=== PATIENT | male | born 1945 | race Caucasian/White ===

== ENCOUNTER 2024-03-30 10:21 | Outpatient (REF) | payer MEDICARE, SELFPAY ==
[2024-03-30 12:03] LABS: Erythrocyte Sedimentation Rate 5 MM/HR (0-15)
[2024-03-30 12:07] LABS: Syphilis Screen Nonreactive (Nonreactive)
[2024-03-30 12:21] LABS: Folate 7.1 ng/mL (> or = 4.0); Vitamin B12 1296 pg/mL (200-900)
[2024-03-31 22:24] LABS: Lyme Abs Screen <0.90 index
[2024-04-05 14:13] LABS: IgA 139 mg/dL (70-320); IgG 1038 mg/dL (600-1540); IgM 66 mg/dL (50-300)
== END 2024-03-30 10:22 | disposition home or self-care (01) ==
LOC: HO.LAB 10:21
PROVIDERS: PCP Internal Medicine; Visit Provider Psychiatry & Neurology Neurology
DX: R27.0 Ataxia, unspecified (principal)
CPT/HCPCS: 82607; 82746; 82784; 85652; 86334; 86617; 86618; 86780

== ENCOUNTER 2024-04-06 07:24 | Outpatient (REF) | payer MEDICARE, SELFPAY ==
--- NOTE | ~2024-04-06 | MR_ITS ---
EXAMINATION: MR CERVICAL SPINE WITHOUT CONTRAST CLINICAL INFORMATION: Ataxia COMPARISON: None available. TECHNIQUE: MRI of the cervical spine was obtained using routine sequences without contrast. FINDINGS: Mild straightening of cervical lordosis. There is grade 1 retrolisthesis C4 over C5 and C5 over C6. There is loss of C3-C4, C4-5, C5-6 and C6-C7 disc heights. Rest of the disc heights are normal. The cervical-medullary junction and C1-C2 alignment is normal. At C2-3 disc level there is mild right uncovertebral hypertrophic change resulting in minimal right neural from narrowing. The left neural foramina is patent. The spinal canal is capacious. At C3-4 disc level posterior spondylosis/bulge complex resulting in thinning of the ventral thecal sac and cord with minimal AP canal narrowing. There is moderate bilateral neural foraminal narrowing. At C4-5 disc level there is posterior spondylosis/bulge complex resulting in flattening of ventral thecal sac an cord with mild AP canal narrowing. There is bilateral moderate narrowing of neural foramina from underlying facet joint and uncovertebral hypertrophic changes. At C5-6 disc level there is a disc bulge/ossified complex flattening the ventral thecal sac and cord. There is moderate bilateral narrowing of neural foramina. At C6/7 disc level there is diffuse disc bulge/osteophyte complex effacing the ventral thecal sac but without spinal canal stenosis. Bulge/disc complexes slightly eccentric to the left para midline region. Neural foramina are narrowed bilaterally. At C7-T1 disc level there is mild disc bulge without spinal canal stenosis the neural foramina are patent bilaterally. There are mild endplate changes at the C5-6 disc level. Mild ventral spondylosis seen from C3-4 through C6 testis 7 disc levels. There is focal T2 cord signal posterior to C3 vertebra suggestive of myelomalacia the paravertebral soft tissues are normal. MR/MR cervical spine wo con IMPRESSION: This bulge/osteophyte complex resulting in mild AP canal stenosis and flattening of the ventral cord at C3-4 through C5-6 disc level. Diffuse disc bulge/osteophyte complex at C6-C7 disc level. In addition there a complex slightly eccentric to the left side. Electronically signed by: Suraj Davis MD 04/06/2024 10:21 AM [facility]
== END 2024-04-06 07:25 | disposition home or self-care (01) ==
LOC: HO.MRI 07:24
PROVIDERS: PCP Internal Medicine; Visit Provider Psychiatry & Neurology Neurology
DX: R27.0 Ataxia, unspecified (principal)
CPT/HCPCS: 72141; 86335

== ENCOUNTER → 2024-04-06 07:30 | Outpatient (BNV) | payer MEDICARE, SELFPAY | PROVIDERS: PCP Internal Medicine; Visit Provider Radiology Diagnostic Radiology | DX: M50.223 Other cervical disc displacement at C6-C7 level (principal) | CPT/HCPCS: 72141 ==

== ENCOUNTER 2024-10-25 13:40 | Outpatient (AMB) | payer MEDICARE, SELFPAY ==
--- OUTSIDE RECORDS SUMMARY | 2024-10-20 23:59 | XMS_ITS | Continuity of Care Document ---
Author Organization [facility] Address [address] [place] [id number]- Care Team Providers Care Tomato Pulper Operator Name Role Phone Radu BRADLEY, Saturnino Hernández Primary Care Physician Encounter [facility] Date(s): 09/20/24 - 10/20/24 [facility] [address] [place] [id number] Encounter Type: Triage Allergies, Adverse Reactions, Alerts No Known Allergies Immunizations Given and Recorded Vaccine Date Status Refusal Reason SARS-CoV-2(COVID-19)mRNA-LNP vac([id number]) 02/26/24 Recorded SARS-CoV-2(COVID-19)mRNA-LNP vac([id number]) 12/04/22 Recorded influenza virus vaccine, inactivated 01/31/24 Give n influenza virus vaccine, inactivated 12/04/22 Daniel rded influenza virus vaccine, inactivated 12/09/21 Daniel rded influenza virus vaccine, inactivated 11/13/20 Daniel rded influenza virus vaccine, inactivated 01/05/20 Daniel rded influenza virus vaccine, inactivated 11/29/18 Daniel rded influenza virus vaccine, inactivated 12/28/17 Daniel rded influenza virus vaccine, inactivated 12/31/16 Daniel rded influenza virus vaccine, inactivated 12/12/14 Daniel rded influenza virus vaccine, inactivated 12/04/13 Daniel rded influenza virus vaccine, inactivated 01/05/13 Daniel rded influenza virus vaccine, inactivated 12/14/11 Daniel rded influenza virus vaccine, inactivated 01/16/11 Daniel rded influenza virus vaccine, inactivated 12/29/08 Daniel rded influenza virus vaccine, inactivated 02/17/08 Daniel rded RSV vaccine preF3, recombinant 12/31/22 Recorded hepatitis B adult vaccine 03/03/22 Recorded hepatitis B adult vaccine 09/23/21 Recorded hepatitis B adult vaccine 08/21/21 Recorded [id number] bivalent booster vax 01/14/22 Recorded tetanus/diphtheria/pertussis, acel(Tdap) 12/09/21 Given tetanus/diphtheria/pertussis, acel(Tdap) 10/06/21 Recorded tetanus/diphtheria/pertussis, acel(Tdap) 08/14/12 Recorded tetanus/diphtheria/pertussis, acel(Tdap) 08/19/10 Given tetanus/diphtheria/pertussis, acel(Tdap) 02/17/08 Recorded pneumococcal 20-valent conjugate vaccine 10/09/21 Given SARS-CoV-2 mRNA ([id number]) vax 07/31/21 Recorded zoster vaccine, inactivated 06/11/21 Recorded zoster vaccine, inactivated 12/05/20 Recorded SARS-CoV-2 (COVID-19) mRNA-1273 vaccine 02/01/21 R ecorded SARS-CoV-2 (COVID-19) mRNA-1273 vaccine 06/13/20 R ecorded SARS-CoV-2 (COVID-19) mRNA-1273 vaccine 05/16/20 R ecorded pneumococcal 13-valent vaccine 06/06/14 Recorded pneumococcal 23-valent vaccine 01/05/13 Recorded Zoster Vaccine Live 05/07/09 Recorded Medications amLODIPine 5 mg oral tablet See Instructions, TAKE 1 TABLET BY MOUTH EVERY DAY NEW DOSE, # 90 tablet, 1 Refills, Maintenance, 07/31/24 12:55:00 PM EDT, [id number], 166.5, cm, 06/29/24 9:27:00 EDT, Height, 75.45, kg, 11/09/23 7:02:00 EDT, Dry Weight Start Date: 07/31/24 Status: Ordered Quantity: 90.0 Unit: tablet Repeat number: 1 atorvastatin 80 mg oral tablet 1 tablet = 80 mg, By Mouth, Daily, # 90 tablet, 1 Refills, Maintenance, 08/11/22 4:25:00 PM EDT, Tablet, [facility], Partial fill upon patient request if the prescription is for a scheduleII opioid drug., 175, cm, 07/22/22 11:37:00 EDT, Height, 78, kg, 12/09/21 10:03:00 EDT, Dry Weight Start Date: 08/11/22 Status: Ordered Quantity: 90.0 Unit: tablet Repeat number: 2 D3 By Mouth, Daily, 0 Refills, Maintenance, 08/19/23 10:23:00 AM EDT, Partial fill upon patient request if the prescription is for a schedule II opioid drug. Start Date: 08/19/23 Status: Ordered Repeat number: 1 Dulcolax Stool Softener See Instructions, 100 mg By Mouth 2 times a day, 0 Refills, Maintenance, 01/14/24 2:03:00 PM EDT, Partial fill upon patient request if the prescription is for a schedule II opioid drug. Start Date: 01/14/24 Status: Ordered Repeat number: 1 Glucagon Emergency Kit for Low Blood Sugar 1 mg injection = 1 mg, Intramuscular, Once, Use as instructed for treatment of severre low blood sugars. If used call 911. E10.649, # 1 each, 1 Refills, Soft Stop, 06/13/24 12:51:00 PM EDT, [facility]/pharmacy #[id number], Partial fill upon patient request if the prescription is for a schedule II opioid drug., 166.5, cm, 05/11/24 8:12:00 EST, Height, 75.45, kg, 11/09/23 7:02:00 EDT, Dry Weight Start Date: 06/13/24 Status: Ordered Quantity: 1.0 Unit: each Repeat number: 2 Humalog 100 u/ml subcutaneous injection See Instructions, INJECT DIRECTED. MAX DAILY DOSE 60 UNITS, # 60 mL, 3 Refills, Maintenance, 09/27/24 4:50:00 PM EDT, [facility], 166.5, cm, 09/08/24 10:02:00 EDT, Height, 75.45, kg, 11/09/23 7:02:00 EDT, Dry Weight Start Date: 09/27/24 Status: Ordered Quantity: 60.0 Unit: mL Repeat number: 4 Insulin Syringe, BD Ultra-Fine 0.3 cc 31 G x 8 mm (5/16in) See Instructions, # 100 each, Refills 3, Tot. Refills 3, Maintenance, use for insulin administration up to 3 times per day,, dispense syringe with 1/2 unit olivier, 10/06/24 9:45:00 AM EDT, dx e10.9, Supply, 166.5, cm, 09/08/24 10:02:00 EDT, Height, 75.45, kg, 11/09/23 7:02:00 EDT, Dry Weight Start Date: 10/06/24 Stop Date: 02/03/25 Status: Ordered Quantity: 100.0 Unit: each Repeat number: 4 Lantus Solostar Pen 100 units/mL subcutaneous solution See Instructions, Inject 15 units daily. Use in case of pump failure. Subcutaneous Injection Daily at bedtime. E10.65 Max dose 60 units., # 30 mL, 1 Refills, Maintenance, 08/19/23 11:09:00 AM EDT, Solution, [facility]/pharm[facility] #[id number], Partial fill upon patient request if the prescription is for a schedule IIopioid drug., 167.5, cm, 08/19/23 10:19:00 EDT, Height, 78, kg, 12/09/21 10:03:00 EDT, Dry Weight Start Date: 08/19/23 Status: Ordered Quantity: 30.0 Unit: mL Repeat number: 2 lisinopril 40 mg oral tablet 1 tablet = 40 mg, By Mouth, Daily, # 90 tablet, 3 Refills, Maintenance, 05/03/24 10:58:00 AM EST, [facility]/pharm[facility] #[id number], 168, cm, 05/03/24 10:08:00 EST, Height, 75.45, kg, 11/09/23 7:02:00 EDT, Dry Weight Start Date: 05/03/24 Status: Ordered Quantity: 90.0 Unit: tablet Repeat number: 4 Pen needles, 31G x5mm, Embecta, Ultra fine II Pen needles, 31G x5mm, Embecta, Ultra fine II, See Instructions, # 200 each, Refills 5, Tot. Refills 5, Maintenance, for 4x daily with insulin pens, E10.9, 09/29/24 12:31:00 PM EDT, Supply, 166.5, cm,09/08/24 10:02:00 EDT, Height, 75.45, kg, 11/09/23 7:02:00 EDT, Dry Weight Start Date: 09/29/24 Status: Ordered Quantity: 200.0 Unit: each Repeat number: 6 Tylenol Caplet Extra Strength = 1,000 mg, By Mouth, taking before exercise, 0 Refills, Maintenance, 11/21/14 9:28:23 AM EDT Start Date: 11/21/14 Status: Ordered Repeat number: 1 Vitamin B12 0 Refills, Maintenance, 08/19/23 10:22:00 AM EDT, Partial fill upon patient request if the prescription is for a schedule II opioid drug. Start Date: 08/19/23 Status: Ordered Repeat number: 1 Problem List Condition Confirmation Course Effective Dates Status Health Status Informant Anemia Confirmed Active Cellulitis of left index finger Confirmed Active Chronic kidney disease, stage 3a 1 Confirmed Active Rash Confirmed Active S/P cataract extraction Confirmed Active Hypercholesteremia Confirmed Active HTN (hypertension) Confirmed Active Laceration of index finger Confirmed Active Sessile colonic polyp Confirmed Active T1DM (type 1 diabetes mellitus) Confirmed Active Wound dehiscence Confirmed Active 1Per chart review meets GFR criteria Social History Social History Type Response Smoking Status Never (less than 100 in lifetime) entered on: 12/18/21 Sex Sex Representation Male (finding) Patient Care team information Care Team Personnel Name: Tony Mojgan Position: [facility] Outreach Member Role: Lifetime Consulting Physician Name: Emma Jimenez Position: [facility] Outreach Member Role: Lifetime Consulting Physician Name: Saturnino Lovelace MD Position: [facility] Physician - Primary Care Member Role: PCP Address: [address] [place] [address], [facility] [address] [place], [place] [address] Telecom: Care Team Related Persons Name: MARK MURILLO Name: HERIBERTO VALLEJO Insurance Providers Guarantor name: BERTRAND VALLEJO Health Plan Information #: 1 Payer: [facility] MEDICARE ADV HMO Payer Identifier: NA Member Number: [id number] Group Number: [id number] Subscriber Identifier: [id number] Relationship to Subscriber: self Coverage Type: Medicare HMO Coverage Verification Date: NA Telecom: NA Address: NA
--- OUTSIDE RECORDS SUMMARY | 2024-10-21 23:59 | XMS_ITS | Continuity of Care Document ---
Author Organization [facility] ter Address [address] [place] [address]- Care Team Providers Care Repairer Sash And Door Name Role Phone Radu BRADLEY, Saturnino Hernández Primary Care Physician Encounter [facility] Date(s): 09/21/24 - 10/21/[address] [id number] Attending Physician: Noemi Wagner Admitting Physician: Noemi Wagner Referring Physician: AdmtrNoemi Encounter Type: Triage Allergies, Adverse Reactions, Alerts No Known Allergies Immunizations Given and Recorded Vaccine Date Status Refusal Reason SARS-CoV-2(COVID-19)mRNA-LNP vac([id number]) 02/26/24 Recorded SARS-CoV-2(COVID-19)mRNA-LNP vac([id number]) 12/04/22 Recorded influenza virus vaccine, inactivated 01/31/24 [...] Recorded hepatitis B adult vaccine 08/21/21 Recorded [id number] bivalent booster vax 01/14/22 Recorded tetanus/diphtheria/pertussis, acel(Tdap) 12/09/21 Given tetanus/diphtheria/pertussis, acel(Tdap) 10/06/21 Recorded tetanus/diphtheria/pertussis, acel(Tdap) 08/14/12 Recorded tetanus/diphtheria/pertussis, acel(Tdap) 08/19/10 Given tetanus/diphtheria/pertussis, acel(Tdap) 02/17/08 Recorded pneumococcal 20-valent conjugate vaccine 10/09/21 Given SARS-CoV-2 mRNA ([id number]) vax 07/31/21 Recorded zoster vaccine, inactivated 06/11/21 [...] Maintenance, 07/31/24 12:55:00 PM EDT, [id number], 166.5, cm, 06/29/24 9:27:00 EDT, Height, 75.45, [...] Refills, Soft Stop, 06/13/24 12:51:00 PM EDT, [facility]/pharmacy #[id number], Partial fill upon patient request if [...] 3 Refills, Maintenance, 09/27/24 4:50:00 PM EDT, [facility], 166.5, cm, 09/08/24 10:02:00 EDT, Height, 75.45, kg, 11/09/23 7:02:00 EDT, Dry Weight Start Date: 09/27/24 Status: Ordered Quantity: 60.0 Unit: mL Repeat number: 4 Insulin Syringe, BD Ultra-Fine 0.3 cc 31 G x 8 mm (516in) See Instructions, # 100 each, Refills 3, [...] Refills, Maintenance, 08/19/23 11:09:00 AM EDT, Solution, [facility]/pharmacy #[id number], Partial fill upon patient request if the prescription is for a schedule IIopioid drug., 167.5, cm, 08/19/23 10:19:00 EDT, Height, 78, kg, 12/09/21 10:03:00 EDT, Dry Weight Start Date: 08/19/23 Status: Ordered Quantity: 30.0 Unit: mL Repeat number: 2 lisinopril 40 mg oral tablet 1 tablet = 40 mg, By Mouth, Daily, # 90 tablet, 3 Refills, Maintenance, 05/03/24 10:58:00 AM EST, [facility]/pharmacy #[id number], 168, cm, 05/03/24 10:08:00 EST, Height, [...] Care team information Care Team Personnel Name: Mojgan Jimenez [facility] Outreach Member Role: Lifetime Consulting Physician Name: Emma Jimenez [facility] Outreach Member Role: Lifetime Consulting Physician Name: Saturnino Lovelace MD [facility] Physician - Primary Care Member Role: PCP Address: [address] [place] [address], [address] Telecom: Care Team Related Persons Name: MARK MURILLO Name: HERIBERTO VALLEJO Insurance Providers Guarantor name: BERTRAND SARAHTatiana Health Plan Information #: 1 Payer: [facility] MEDICARE ADV HMO Payer Identifier: NA Member Number: [id number] Group Number: [id number] Subscriber Identifier: [id number] Relationship to Subscriber: self Coverage Type: Medicare HMO Coverage Verification Date: NA Telecom: NA Address: NA
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
--- OUTSIDE RECORDS SUMMARY | 2024-10-25 14:08 | XMS_ITS | Encounter Summary ---
Author Organization [facility] Address [address] [place] [address] Phone Care Team Providers Care Automatic Log Cut Off Sawyer Name Role Phone Miko Stockton MD Primary Care Provider [phone] Encounter Details Date Type Department Care Team (Late st Contact Info) Description 03/18/2022 Documentation Only [facility] [address] [place] [phone] Abhishek Davenport MD [address] [place] [address] [place] [phone] Social History Tobacco Use Types Packs/Day Years Used Date Smoking Tobacco: Never Smokeless Tobacco: Never Sex and Gender Information Value Date Recorded Sex Assigned at Male 03/21/2022 8:55 AM EST Legal Sex Male 4:34 PM EST Gender Identity Male 03/21/2022 8:55 AM EST Sexual Orientation Straight 03/21/2022 8: 55 AM EST documented as of this encounter Plan of Treatment Upcoming Encounters Date Type Department Care Team (Late st Contact Info) Description 01/04/2025 11:10 AM EDT Office Visit [facility] [address] [phone] Abhishek Davenport MD [address] [place] [address] documented as of this encounter Visit Diagnoses Not on filedocumented in this encounter Care Teams Automatic Log Cut Off Sawyer Relationship Specialty Start Date End Date Miko Stockton MD [address] [place] [address] PCP - General Internal Medicine 11/20/20 documented as of this encounter
--- OUTSIDE RECORDS SUMMARY | 2024-10-25 14:08 | XMS_ITS ---
[facility] Care Team Organization Name Specialty Phone Email Start Date End Da te [facility] Aurelio Cruz [place] [facility] 01/20/2022 11/01/2023
--- OUTSIDE RECORDS SUMMARY | 2024-10-25 14:08 | XMS_ITS | Clinical Summary ---
Author Organization [facility] Address [address] [facility] [address] [place] [address] Phone Care Team Providers Care Ms Access Database Developer Name Role Phone Miko Stockton MD Primary Care Provider + Social History Tobacco Use Types Packs/Day Years Used Date Smoking Tobacco: Never Assessed Education Answer Date Recorded Are you interested in more education? Not on zenia e 10/13/2023 Are you concerned about learning? Not on file 10/13/2023 No 10/13/2023 No 10/13/2023 Digital Access Answer Date Recorded No 10/13/2023 No 10/13/2023 Reliable internet access at home? Not on file 10/13/2023 Device with a working camera? Not on file Sex and Gender Information Value Date Recorded Sex Assigned at Male 10/15/2023 9:22 AM EDT Legal Sex Male 7:39 PM EST Gender Identity Male 10/15/2023 9:22 AM EDT Sexual Orientation Straight 10/15/2023 9: 22 AM EDT Plan of Treatment Health Maintenance Due Date Last Done Comments Adult Td,Tdap Booster 1945 LIPID PANEL 1947 DEPRESSION SCREENING 1959 SMOKING Hx and SMOKELESS TOB ACCO SCREENING 10/19/1960 HEPATITIS C SCREENING 10/19/1965 PNEUMOCOCCAL VACCINES (50+ y ears) (1 of 1 - PCV) 10/19/1997 ZOSTER VACCINES (1 of 2) 10/19/1997 RSV VACCINE (1 - 1-dose 75+ series) 10/19/2022 COVID-19 VACCINE (2023-2 5 season) 2023 HEPATITIS A VACCINES Aged Out No long er eligible based on patient's age to complete this topic HIB VACCINES Aged Out No longer eligi ble based on patient's age to complete this topic MENINGOCOCCAL VACCINES (ACWY) Aged Out No longer eligible based on patient's age to complete this topic MENINGOCOCCAL VACCINES (B) Aged Out N o longer eligible based on patient's age to complete this topic Medical Devices Not on file Insurance [employer] H[employer] REPLACEMENT [employer] H[employer] REPLACEMENT [facility] MEDICARE HMO REPLACEMENT [facility] MEDICARE HMO REPLACEMENT [employer] [place] [employer] HMO REPLACEMENT [facility] MEDICARE HMO REPLACEMENT Care Teams Ms Access Database Developer Relationship Specialty Start Date End Date Miko Stockton MD [address] [place] [id number] PCP - General Internal Medicine 10/14/23 Additional Source Comments The information contained in this document represents components of the legal health record. It is not the complete legal health record.[facility]
== END 2024-10-25 14:07 | disposition home or self-care (01) ==
PROVIDERS: PCP Internal Medicine; Referring Provider Internal Medicine; Visit Provider Psychiatry & Neurology Neurology
DX: R26.89 Other abnormalities of gait and mobility (principal); G62.9 Polyneuropathy, unspecified; G31.84 Mild cognitive impairment of uncertain or unknown etiology; M47.12 Other spondylosis with myelopathy, cervical region
CPT/HCPCS: 99214

== ENCOUNTER → 2024-10-25 13:40 | Outpatient (BNVA) | payer MEDICARE, SELFPAY | PROVIDERS: PCP Internal Medicine; Referring Provider Internal Medicine; Visit Provider Psychiatry & Neurology Neurology | DX: E11.9 Type 2 diabetes mellitus without complications (principal); Z79.4 Long term (current) use of insulin; I10 Essential (primary) hypertension; R26.89 Other abnormalities of gait and mobility | CPT/HCPCS: 99212 ==